=== PATIENT | female | born 1970 | race Caucasian/White ===

== ENCOUNTER 2024-02-25 14:36 | Outpatient (CLI) | payer MEDICAID | END 2024-02-25 23:59 | disposition home or self-care (01) | LOC: LAB 14:36 | PROVIDERS: ATTEND Family Medicine | DX: M79.672 Pain in left foot (principal) | CPT/HCPCS: 73630 ==

== ENCOUNTER 2024-04-07 11:09 | Day surgery (SDC) | payer MEDICAID ==
[2024-04-02 10:59] LABS: BASOPHILS % (AUTO) 0.8 % (0-1); EOSINOPHILS # (AUTO) 0.1 X10'3 (0-0.9); EOSINOPHILS % (AUTO) 1.4 % (0-6); LYMPHOCYTES # (AUTO) 1.3 X10'3 (1.1-4.8); LYMPHOCYTES % (AUTO) 27.1 % (21-51); MEAN CORPUSCULAR HEMOGLOBIN 32.3 PG (27.0-31.0); MEAN CORPUSCULAR HGB CONC 34.3 g/dL (33.0-36.5); MEAN CORPUSCULAR VOLUME 94.3 FL (78-98); MEAN PLATELET VOLUME 9.1 FL (7.4-10.4); MONOCYTES # (AUTO) 0.4 X10'3 (0-0.9); MONOCYTES % (AUTO) 9.2 % (2-12); NEUTROPHILS # (AUTO) 2.9 X10'3 (1.8-7.7); NEUTROPHILS % (AUTO) 61.5 % (42-75); PRE OP HEMATOCRIT 41.5 % (35.0-45.0); PRE OP HEMOGLOBIN 14.2 g/dL (12.0-16.0); PRE OP PLATELET COUNT 228 X10'3 (140-440); PRE OP WHITE BLOOD COUNT 4.7 10'3 (4.8-10.8)
[2024-04-02 11:21] LABS: ALBUMIN 3.8 G/DL (3.4-5.0); ALBUMIN/GLOBULIN RATIO 1.2 (1.1-1.5); ALKALINE PHOSPHATASE 54 IU/L (46-116); BLOOD UREA NITROGEN 17 MG/DL (7-18); BUN/CREATININE RATIO 24.3 (10.0-20.0); CALCIUM 9.1 MG/DL (8.5-10.1); CHLORIDE 101 MMOL/L (99-107); PRE OP ALT 28 U/L (30-65); PRE OP ANION GAP 7 (8-16); PRE OP AST 13 U/L (10-37); PRE OP BILIRUB, TOTAL 0.4 MG/DL (0.0-1.0); PRE OP GLUCOSE 98 MG/DL (70-104); PRE OP POTASSIUM 4.2 MMOL/L (3.4-5.1); PRE OP SODIUM 135 MMOL/L (135-145); TOTAL CARBON DIOXIDE 27.2 MMOL/L (24-32); eGFR 88 ML/MIN
[2024-04-06] MEDS: DOCUMENT DATE & TIME OF BETA-BLOCKER PO ONE (20:00)
[~2024-04-07] VITALS: Ht 170.2 cm; Wt 98.0 kg
[2024-04-07] VITALS (7 sets, daily range): BP systolic 139–152; BP diastolic 87–102; PULSE 59–79; RESP 12–16; TEMP 98.5; O2SAT 97–99
[2024-04-07] MEDS: cefazolin 2gm/D5W 100mL 100 ML IV ONE (05:30)
[~2024-04-07 11:09] MED LIST: LIDOcaine 2% (20mg/ml) 5ml vial ONE; METO-395 PO
[2024-04-07] MEDS ORDERED: labetalol 20mg/4ml (5mg/ml) syringe IV PRN (11:45)
[2024-04-07] MEDS ORDERED: ondansetron/PF 4mg/2ml inj IV PRN (11:45)
[2024-04-07] MEDS ORDERED: fentaNYL/PF 50MCG/1 ML 2ML syringe IV PRN ×2 (11:45)
[2024-04-07] MEDS ORDERED: morphine 2 MG/ML inj. syringe IV PRN (11:45)
[2024-04-07] MEDS ORDERED: ringers solution, lacted 1,000 ML IV SCH (11:45)
[2024-04-07] MEDS: ringers solution, lacted 1,000 ML IV SCH (11:50)
[2024-04-07] MEDS: famotidine 20mg tablet PO ONE (11:50)
[2024-04-07] MEDS ORDERED: LIDOcaine 0.5% (5mg/ml) 50ml vial ONE (13:41)
[2024-04-07] MEDS ORDERED: propofol 10mg/ml 20ml vial IV ONE (13:56)
[2024-04-07] MEDS: BUPIVAcaine/PF 2.5mg/ml (0.25%) 10ml vial ONE ×2 (14:30→16:49)
[2024-04-07] MEDS: morphine 4 MG/ML inj SYRINge IV PRN (15:00)
[2024-04-07] MEDS ORDERED: acetaminophen 1,000mg/100ml IV 100 ML IV ONE (15:05)
== END 2024-04-07 15:54 | disposition home or self-care (01) ==
LOC: PAS 11:09
PROVIDERS: ATTEND Orthopaedic Surgery Hand Surgery
DX: M18.11 Unilateral primary osteoarthritis of first carpometacarpal joint, right hand (principal); I10 Essential (primary) hypertension; I20.9 Angina pectoris, unspecified; Z79.899 Other long term (current) drug therapy; Z79.891 Long term (current) use of opiate analgesic; Z98.890 Other specified postprocedural states
CPT/HCPCS: 25312; 25447; 36415; 80053; 82948; 85025; 93005; J0690; J2270; J2704; J3490; J7030; J7120; Z7506; Z7512; A4215; A4618; A6449; A7000